=== PATIENT | female | born 1940 | race Caucasian/White ===

== ENCOUNTER 2022-05-12 07:38 | Outpatient (CLI) | payer OTHER | END 2022-05-12 07:40 | disposition home or self-care (01) | LOC: TOM 07:38 | PROVIDERS: ATTEND Internal Medicine Hematology & Oncology | DX: D64.9 Anemia, unspecified (principal); K90.89 Other intestinal malabsorption; D51.3 Other dietary vitamin B12 deficiency anemia; E55.9 Vitamin D deficiency, unspecified; R73.01 Impaired fasting glucose; R19.5 Other fecal abnormalities ==